=== PATIENT | female | born 1950 | race Caucasian/White ===

== ENCOUNTER 2022-07-01 14:10 | Emergency (ER) | payer MEDICARE, MEDICAID ==
[~2022-07-01] VITALS: Ht 167.6 cm; Wt 77.3 kg
[~2022-07-01 14:10] MED LIST: ACET100D8 PO; ALB0.5UD IH; ALBU8HFA PO; ANAS1TAB10 PO; BLOO-292; BUPR200T2 PO; BUSP10TA11 PO; CALC-1215 PO; COM10T PO; DESV100T4 PO; EPIN0.3A3 IM; ESOM40CA PO; GUAI600T PO; IPRA3AMP31 IH; METH-234 PO; PRED10TA PO; SYN0.025T PO; TOP100T PO; TRAZ-91 PO
[2022-07-01] MEDS: LIDOcaine 5% patch TP SCH ×2 (19:39→19:40)
[2022-07-02] MEDS ORDERED: LIDOcaine 5% patch TP SCH (08:00)
== END 2022-07-01 19:41 | disposition home or self-care (01) ==
LOC: ER 14:11
DX: S20.20XA Contusion of thorax, unspecified, initial encounter (principal); Z88.0 Allergy status to penicillin; Z91.018 Allergy to other foods; Z91.040 Latex allergy status; Z88.5 Allergy status to narcotic agent; W19.XXXA Unspecified fall, initial encounter; Y93.89 Activity, other specified; Y92.89 Other specified places as the place of occurrence of the external cause; Y99.8 Other external cause status
CPT/HCPCS: 71045; 99283